=== PATIENT | male | born 1985 | race American Indian/Alaskan Native ===

== ENCOUNTER 2016-11-03 10:14 | Emergency (ER) | payer SELFPAY ==
[~2016-11-03] VITALS: Ht 172.7 cm; Wt 54.4 kg
== END 2016-11-03 10:45 | disposition home or self-care (01) ==
LOC: CFTX 10:14 → CED 10:14 → CFTX 10:42
DX: H10.32 Unspecified acute conjunctivitis, left eye (principal); J45.909 Unspecified asthma, uncomplicated; F17.210 Nicotine dependence, cigarettes, uncomplicated
CPT/HCPCS: 99283